=== PATIENT | male | born 1950 | race Caucasian/White ===

== ENCOUNTER → 2017-02-22 | Outpatient (CLI) | payer MEDICARE, BC ==
[~2017-02-22] MED LIST: CARD120T4 PO; CHOL5000 PO; CLOP75 PO; DOCU1CAP39 PO; HYDR-3516 PO; LIDO5T TOP; LIPI20TA PO; MONT10TA2 PO; MULT-267 PO; PLAV75TA29 PO; PRED50 PO; ROBA750T3 PO; TAB-TAB PO; TAMS5CAP PO; VITA100017 PO; VITA5000 PO; ZINC50TA2 PO
[2017-02-22 13:32] LABS: MEAN CELL VOLUME 99.2 FL (80.0-100.0); MEAN CORPUSCULAR HEMOGLOBIN 34.4 PG (27.0-34.0); MEAN CORPUSCULAR HGB CONC 34.7 % (32.0-36.0); PLATELET COUNT 246 TH/MM3 (150-450); RED BLOOD COUNT 4.43 MIL/MM3 (4.50-5.90); RED CELL DISTRIBUTION WIDTH 13.3 % (11.6-17.2); REVIEW FLAG FINAL; WHITE BLOOD COUNT 9.4 TH/MM3 (4.0-11.0)
[2017-02-22 13:37] LABS: BLOOD, URINE NEG (NEG); COMMENT (UR) CULT NOT INDICATED; CULTURE IF INDICATED CULT NOT INDICATED; GLUCOSE,URINE NEG (NEG); KETONE, URINE NEG (NEG); NITRITE,URINE NEG (NEG); URINE COLOR YELLOW (YELLW/STRAW)
[2017-02-22 13:48] LABS: BICARBONATE 28.2 MEQ/L (21.0-32.0); POTASSIUM 4.1 MEQ/L (3.5-5.1)
[2017-02-22 13:52] LABS: APTT (PATIENT) 26.9 SEC (24.3-30.1); PROTHROMBIN TIME - PATIENT 11.4 SEC (9.8-11.6)
--- NOTE | 2017-02-22 15:03 | RADRPT ---
EXAM DATE/TIME: 02/22/2017 14:26 [facility] COMPARISON: No previous studies available for comparison. INDICATIONS : Evaluate for penumonia, penumothorax, or communicable disease. Pre op for lobectomy. MEDICAL HISTORY : Myocardial infarction. Hypercholesterolemia. Chronic obstructive pulmonary disease. Sleep apnea. SURGICAL HISTORY : Appendectomy. Cholecystectomy. Splenectomy. Left hip replacement. Right knee. ENCOUNTER: Initial ACUITY: 1 day PAIN SCORE: 0/10 LOCATION: chest FINDINGS: PA and lateral views of the chest demonstrate the lungs to be symmetrically aerated without evidence of mass, infiltrate or effusion. The cardiomediastinal contours are unremarkable. Osseous structure s are intact. CONCLUSION: No acute disease. Ervin Samaniego MD FACR on February 22, 2017 at 14:54 Board Certified Radiologist. This report was verified electronically.
--- NOTE | 2017-02-22 16:49 | EKG ---
Date Performed: 02/22/2017 Time Performed: 14:14:35 PTAGE: 67 years EKG: Sinus rhythm INCOMPLETE RIGHT BUNDLE BRANCH BLOCK BORDERLINE ECG NO PREVIOUS TRACING DOCTOR: Low Cruz Interpretating Date/Time 02/22/2017 16:48:31
== END ==
LOC: CPRE 13:00
PROVIDERS: ATTEND Thoracic Surgery (Cardiothoracic Vascular Surgery)
DX: Z01.810 Encounter for preprocedural cardiovascular examination (principal); Z01.811 Encounter for preprocedural respiratory examination; Z01.812 Encounter for preprocedural laboratory examination; C34.11 Malignant neoplasm of upper lobe, right bronchus or lung; R94.31 Abnormal electrocardiogram [ECG] [EKG]
CPT/HCPCS: 36415; 71020; 80048; 81001; 85027; 85610; 85730; 93005

== ENCOUNTER 2017-02-26 05:30 | Inpatient (IN) | payer MEDICARE, BC ==
[~2017-02-26] VITALS: Ht 172.7 cm; Wt 73.0 kg
[2017-02-26] VITALS (14 sets, daily range): BP systolic 121–138; BP diastolic 66–76; PULSE 74–84; RESP 16–18; TEMP 97.1–98.2; O2SAT 94–99
[~2017-02-26 05:30] MED LIST changes: -CARD120T4 PO; -CLOP75 PO; -DOCU1CAP39 PO; -HYDR-3516 PO; -LIDO5T TOP; -PRED50 PO; -ROBA750T3 PO; -TAB-TAB PO; -VITA100017 PO; -VITA5000 PO
[2017-02-26] MEDS ORDERED: METOPROLOL TARTRATE 25 MG TAB PO PRN (06:00)
[2017-02-26] MEDS ORDERED: CHLORHEXIDINE GLUCONATE 2 % 1 PACK (2 CLOTHS) TOPICAL PRN (06:00)
[2017-02-26] MEDS ORDERED: INSULIN HUMAN REGULAR 1,000 UNITS/10 ML VIAL SQ PRN (06:00)
[2017-02-26] MEDS ORDERED: SODIUM CHLORID 0.9% 500 ML IV PRN (06:00)
[2017-02-26] MEDS ORDERED: LACTATED RINGER'S 1000 ML IV PRN (06:00)
[2017-02-26] MEDS ORDERED: POVIDONE IODINE 5% (ANTISEPSIS KIT) 4 APPLICATIONS EACH NARE PRN (06:00)
[2017-02-26] MEDS ORDERED: BUPIVACAINE LIPOSO PF 1.3% INJ 20 ML, DEXAMETHASONE INJ 4 MG, MORPHINE INJ 8 MG in SODI... IRRIGATION ONE (07:00)
[2017-02-26] MEDS ORDERED: VANCOMYCIN HCL 1000 MG VIAL ONE (07:03)
[2017-02-26] MEDS ORDERED: ACETAMINOPHEN 1000 MG/100 ML 100 ML IV ONE (08:45)
[2017-02-26] MEDS ORDERED: SUGAMMADEX SODIUM 200 MG/2 ML VIAL IV PUSH ONE ×2 (08:45)
[2017-02-26] MEDS ORDERED: ACETAMINOPHEN 325 MG TAB PO PRN (10:45)
[2017-02-26] MEDS ORDERED: Post-op Orders (for Pharmacy) MISC OTHER ONE (10:45)
[2017-02-26] MEDS ORDERED: MORPHINE SULFATE 4 MG/ML INJ IV PUSH PRN (10:45)
[2017-02-26] MEDS ORDERED: SODIUM CHLORIDE 0.9% FLUSH 5 ML FLUSH IV FLUSH PRN (10:45)
[2017-02-26] MEDS ORDERED: RESP: ALBUTEROL 2.5 MG/3 ML NEB (PRN) NEB (10:45)
[2017-02-26] MEDS ORDERED: MAGNESIUM HYDROXIDE SUSP 30 ML CUP PO PRN (10:45)
[2017-02-26] MEDS ORDERED: ONDANSETRON HCL 4 MG/2 ML VIAL IV PUSH PRN (10:45)
[2017-02-26] MEDS ORDERED: *morphine SULFATE 8 MG/ML PERIprocedure ONLY ONE ×3 (11:16→11:44)
--- NOTE | 2017-02-26 11:25 | RADRPT ---
EXAM DATE/TIME: 02/26/2017 10:57 [facility] COMPARISON: CHEST PA & LAT, February 22, 2017, 14:26. INDICATIONS : Post-op thoracotomy. MEDICAL HISTORY : Cardiovascular disease. SURGICAL HISTORY : Coronary artery stent. ENCOUNTER: Initial ACUITY: 1 day PAIN SCORE: Non-responsive. LOCATION: chest FINDINGS: There is a large bore chest tube in the right apex. Very subtle right apical pneumothorax with minima l subcutaneous emphysema. Redemonstration linear parenchymal opacities in the left lung base consiste nt with atelectasis. Cardiomedi cell contours are stable. Remainder of the exam is unchanged. CONCLUSION: 1. Right apical chest tube in good position with subtle apical pneumothorax and minimal subcutaneous emphysema. Chilo Rodriguez MD on February 26, 2017 at 11:22 Board Certified Radiologist. This report was verified electronically.
--- NOTE | 2017-02-26 11:49 | PD.OP ---
cc: Harika Simms MD; Kvng Benítez MD Operative Report Date of Surgery: Feb 26, 2017 Preoperative Diagnosis: Postoperative Diagnosis: Procedure: 1. Right Posterolateral Muscle Sparing Thoracotomy 2. Right Upper Lobectomy 3. Mediastinal Lymph Node Dissection 4. Intercostal Nerve Block Surgeon: Harika Simms Bid Writer(s): Saad Melendez Operation and Findings: PREOPERATIVE DIAGNOSIS 1. Right Upper Lobe Lung Cancer 2. COPD 3. CAD POSTOPERATIVE DIAGNOSIS same PROCEDURES 1. Right Posterolateral Muscle Sparing Thoracotomy 2. Right Upper Lobectomy 3. Mediastinal Lymph Node Dissection 4. Intercostal Nerve Block SURGEON Harika Simms MD [facility]SE[facility] Patel ANESTHESIA General double-lumen endotracheal. KEY PERSON ANDREW Dejesus MD DRAINS [address] COUNTS Needle, sponge, and instrument counts were correct. COMPLICATIONS None. INDICATION FOR PROCEDURE The patient is a 67 yo gentleman with RUL Adenocarcinoma presenting for surgical resection of above pathology. DESCRIPTION OF PROCEDURE The patient was brought to the operating suite and placed in supine position. Following satisfactory induction of general double-lumen endotracheal anesthesia , the patient was placed in the left lateral decubitus position. The right chest and surrounding area was then prepped and draped in the usual sterile fashion. A standard muscle-sparing posterolateral thoracotomy was performed and the serratus anterior muscle spared. The pleural space was entered. Exploration of the chest revealed a subcentimeter nodule in the right upper lobe. The inferior pulmonary ligament was divided. The pulmonary arterial supply to the upper lobe was identified, dissected free and divided as was the pulmonary venous supply. The bronchus was then dissected free, clamped and the remaining lung was insufflated without any difficulty. Lymph node dissections of level 4, 7, 9, 10 and 11 were performed along with the course of this removal. Some of these were retained with the specimen. Specimen was removed from the chest. At this point the closure was undertaken. A 28-Citizen Of [place] chest tube was placed. Intercostal nerve block was performed at the level of the incision and 3 rib spaces above and below using Exparel with Decadron solution. The pericostal space was approximated with interrupted #1 Vicryl sutures in a pericostal fashion. The serratus fascia and Latissimus dorsi were closed with running 0- Vicryl and the remaining wounds closed with 3-0, and 4-0 Monocryl. The patient tolerated the procedure well and postoperatively went to the PACU in stable condition. Harika Simms MD Feb 26, 2017 11:49
[2017-02-26] MEDS ORDERED: *diphenhydrAMINE HCL 50 MG/ML VIAL PERIprocedural Use ONLY ONE (11:51)
[2017-02-26] MEDS: KETOROLAC TROMETHAMINE 30 MG/ML (IVP) VIAL IV PUSH SCH ×2 (12:00→18:03)
[2017-02-26] MEDS ORDERED: PHENYLEPH/NS 1000 MCG/10 ML SYR IV ONE (12:00)
[2017-02-26] MEDS ORDERED: ONDANSETRON HCL 4 MG/2 ML VIAL IV PUSH ONE (12:00)
[2017-02-26] MEDS ORDERED: ROCURONIUM INJ 50 MG/5 ML SYRINGE IV PUSH ONE (12:00)
[2017-02-26] MEDS ORDERED: PROPOFOL 200 MG/20 ML AMP IV ONE (12:00)
[2017-02-26] MEDS: MULTIVITAMIN TAB PO SCH (12:00)
[2017-02-26] MEDS ORDERED: LIDOCAINE HCL 1% PF 5 ML AMPULE OTHER ONE (12:00)
[2017-02-26] MEDS ORDERED: MIDAZOLAM HCL 2 MG/2 ML VIAL IV ONE (12:00)
[2017-02-26] MEDS ORDERED: ESMOLOL HCL 100 MG/10 ML VIAL IV ONE (12:00)
[2017-02-26] MEDS ORDERED: DO NOT ADM ANY ANTICOAGULANT DRUGS PRN (13:30)
[2017-02-26] MEDS: RESP: ALBUTEROL 2.5 MG/3 ML NEB (SCH) NEB ×3 (15:45→21:12)
[2017-02-26] MEDS: ACETAMINOPHEN 1000 MG/100 ML 100 ML IV SCH ×2 (16:19→22:21)
[2017-02-26] MEDS: HYDROmorphone HCL PF 1 MG/ML VIAL IV PUSH PRN ×2 (16:20→20:41)
[2017-02-26] MEDS: ACETAMINOPHEN/HYDROcodone 325 MG/5 MG TAB PO PRN (19:20)
[2017-02-26] MEDS: MONTELUKAST SODIUM 10 MG TAB PO SCH (20:44)
[2017-02-26] MEDS: PANTOPRAZOLE SOD 40 MG DELAYED RELEASE TAB PO SCH (20:44)
[2017-02-26] MEDS: ATORVASTATIN 20 MG TAB PO SCH (20:45)
[2017-02-26] MEDS: TAMSULOSIN HCL 0.4 MG CAP PO SCH (20:45)
[2017-02-26] MEDS: VANCOMYCIN INJ 1,000 MG in SODIUM CHLOR 0.9% 250 ML INJ 250 ML IV SCH (20:47)
[2017-02-26] MEDS: SODIUM CHLORIDE 0.9% FLUSH 5 ML FLUSH IV FLUSH SCH (20:47)
[2017-02-26] MEDS ORDERED: DOCUSATE CALCIUM 240 MG CAP PO SCH (21:00)
[2017-02-27] VITALS (26 sets, daily range): BP systolic 110–164; BP diastolic 60–79; PULSE 51–88; RESP 16–20; TEMP 97.9–99.2; O2SAT 93–98
[2017-02-27] MEDS: KETOROLAC TROMETHAMINE 30 MG/ML (IVP) VIAL IV PUSH SCH ×2 (00:33→04:57)
[2017-02-27] MEDS: HYDROmorphone HCL PF 1 MG/ML VIAL IV PUSH PRN ×4 (00:45→20:44)
[2017-02-27] MEDS: RESP: ALBUTEROL 2.5 MG/3 ML NEB (SCH) NEB ×4 (03:31→21:04)
[2017-02-27] MEDS: ACETAMINOPHEN 1000 MG/100 ML 100 ML IV SCH ×2 (03:39→09:36)
[2017-02-27 05:24] LABS: BICARBONATE 25.2 MEQ/L (21.0-32.0); POTASSIUM 3.9 MEQ/L (3.5-5.1)
[2017-02-27 05:28] LABS: AUTOMATED NEUTROPHIL # 15.3 TH/MM3 (1.8-7.7); BASOPHIL # 0.1 TH/MM3 (0-0.2); BASOPHIL % 0.3 % (0.0-2.0); EOSINOPHIL % 0.2 % (0.0-4.0); HEMATOCRIT 39.9 % (39.0-51.0); LYMPHOCYTE # 2.3 TH/MM3 (1.0-4.8); MEAN CELL VOLUME 100.1 FL (80.0-100.0); MEAN CORPUSCULAR HEMOGLOBIN 34.4 PG (27.0-34.0); MEAN CORPUSCULAR HGB CONC 34.4 % (32.0-36.0); MONO % 14.9 % (0.0-8.0); NEUT % 73.6 % (16.0-70.0); PLATELET COUNT 200 TH/MM3 (150-450); RED BLOOD COUNT 3.99 MIL/MM3 (4.50-5.90); RED CELL DISTRIBUTION WIDTH 13.5 % (11.6-17.2); WHITE BLOOD COUNT 20.7 TH/MM3 (4.0-11.0)
[2017-02-27 05:41] LABS: HEMO FLAGS AUTO DIFF
--- NOTE | 2017-02-27 06:03 | RADRPT ---
EXAM DATE/TIME: 02/27/2017 05:23 [facility] COMPARISON: CHEST SINGLE AP, February 26, 2017, 10:57. INDICATIONS : Post thoracotomy. MEDICAL HISTORY : Cardiovascular disease. SURGICAL HISTORY : Coronary artery stent. ENCOUNTER: Subsequent ACUITY: 2 days PAIN SCORE: Non-responsive. LOCATION: Right chest FINDINGS: Right chest tube remains in place. No perceptible pneumothorax. Right chest wall emphysema again seen . Patchy consolidation seen left lung base, probably slightly worse in the interim. Heart size stable, within normal limits. Hilar fullness noted, especially on the right. CONCLUSION: 1. No pneumothorax seen. Right chest tube remains in place with tip at the apex. 2. Worsening left base consolidation. Mynor Gee MD on February 27, 2017 at 6:00 Board Certified Radiologist. This report was verified electronically.
[2017-02-27] MEDS: VANCOMYCIN INJ 1,000 MG in SODIUM CHLOR 0.9% 250 ML INJ 250 ML IV SCH (07:44)
[2017-02-27] MEDS: CHOLECALCIFEROL (VIT D3) 5000 UNIT CAP PO SCH (09:00)
[2017-02-27] MEDS ORDERED: PATIENT OWN MEDICATION: ZINC GLUCONATE 50MG TABLET PO SCH (09:00)
[2017-02-27] MEDS: SODIUM CHLORIDE 0.9% FLUSH 5 ML FLUSH IV FLUSH SCH ×2 (09:00→20:18)
[2017-02-27 09:08] LABS: SCAN/DIFF AUTO DIFF CONFIRMED
[2017-02-27] MEDS: MULTIVITAMIN TAB PO SCH (09:33)
[2017-02-27] MEDS: POLYETHYLENE GLYCOL 17 GM PKG PO SCH (09:34)
[2017-02-27] MEDS: DOCUSATE SODIUM 100 MG CAP PO SCH ×2 (09:34→20:17)
--- NOTE | 2017-02-27 11:29 | PD.CAR.PN ---
CVT Progress Note Subjective/Hospital Course: 67/ male hx of RUL nodule increasing in size, underwent BX dx with adenocarcinoma right upper lobe . PMH: COPD, CAD ( stent on Plavix 2006) tobacco abuse, quit in Sept surgery: 02/26 1. Right Posterolateral Muscle Sparing Thoracotomy 2. Right Upper Lobectomy 3. Mediastinal Lymph Node Dissection 1200cc crystalloid, 75cc EBL 02/27 had short burst of nonsustained SVT last pm, now remains in NSR K+ 3.9, 20 meq given resume plavix tomorrow continue pulm toileting path pending Objective: GENERAL: SKIN: Warm and dry. incision intact right postero lateral chest wall HEAD: Normocephalic. EYES: No scleral icterus. No injection or drainage. NECK: Supple, trachea midline. No JVD or lymphadenopathy. CARDIOVASCULAR: Regular rate and rhythm without murmurs, gallops, or rubs. RESPIRATORY: Breath sounds equal bilaterally. No accessory muscle use. chest tube to wall suction , drained 280cc/ bloody drainage, no air leak GASTROINTESTINAL: Abdomen soft, non-tender, nondistended. MUSCULOSKELETAL: No cyanosis, or edema. BACK: Nontender without obvious deformity. No CVA tenderness. Vital Signs Date Time Temp Pulse Resp B/P (MAP) Pulse Ox O2 Delivery O2 Flow Rate FiO2 02/27/17 10:06 19 02/27/17 10:04 84 02/27/17 09:36 18 02/27/17 09:00 80 02/27/17 08:55 97 21 02/27/17 08:01 69 02/27/17 07:00 98.3 79 19 123/60 (81) 95 02/27/17 07:00 81 02/27/17 06:45 51 02/27/17 05:00 77 02/27/17 04:15 74 02/27/17 03:35 98 02/27/17 03:20 77 02/27/17 03:20 97.9 77 16 110/67 (81) 98 02/27/17 02:30 79 02/27/17 01:23 81 02/27/17 00:07 78 02/26/17 23:51 98.2 78 16 126/66 (86) 94 02/26/17 23:00 78 02/26/17 22:00 80 02/26/17 21:16 94 21 10/3/17 21:00 76 02/26/17 20:15 74 02/26/17 19:05 98.0 78 18 121/76 (91) 97 02/26/17 19:05 75 02/26/17 18:12 84 02/26/17 16:00 82 02/26/17 16:00 98.0 78 16 124/68 (86) 98 02/26/17 15:50 99 Nasal Cannula 3.00 02/26/17 15:00 81 02/26/17 14:00 82 02/26/17 14:00 97.1 78 16 138/72 (94) 98 02/26/17 13:00 82 02/26/17 12:47 74 02/26/17 12:15 97.1 74 15 119/72 (88) 99 Nasal Cannula 3 02/26/17 12:00 72 16 125/75 (92) 99 Nasal Cannula 3 02/26/17 11:45 74 15 125/66 (85) 99 Nasal Cannula 3 02/26/17 11:30 74 17 126/70 (88) 99 Nasal Cannula 3 Labs: Laboratory Tests Test 02/27/17 04:43 02/27/17 04:45 Blood Urea Nitrogen 20 MG/DL (7-18) Creatinine 0.86 MG/DL (0.60-1.30) Random Glucose 125 MG/DL (74-106) Calcium Level 8.2 MG/DL (8.5-10.1) Sodium Level 135 MEQ/L (136-145) Potassium Level 3.9 MEQ/L (3.5-5.1) Chloride Level 103 MEQ/L (98-107) Carbon Dioxide Level 25.2 MEQ/L (21.0-32.0) Anion Gap 7 MEQ/L (5-15) Estimat Glomerular Filtration Rate 89 ML/MIN (>89) White Blood Count 20.7 TH/MM3 (4.0-11.0) Red Blood Count 3.99 MIL/MM3 (4.50-5.90) Hemoglobin 13.7 GM/DL (13.0-17.0) Hematocrit 39.9 % (39.0-51.0) Mean Corpuscular Volume 100.1 FL (80.0-100.0) Mean Corpuscular Hemoglobin 34.4 PG (27.0-34.0) Mean Corpuscular Hemoglobin Concent 34.4 % (32.0-36.0) Red Cell Distribution Width 13.5 % (11.6-17.2) Platelet Count 200 TH/MM3 (150-450) Mean Platelet Volume 8.2 FL (7.0-11.0) Neutrophils (%) (Auto) 73.6 % (16.0-70.0) Lymphocytes (%) (Auto) 11.0 % (9.0-44.0) Monocytes (%) (Auto) 14.9 % (0.0-8.0) Eosinophils (%) (Auto) 0.2 % (0.0-4.0) Basophils (%) (Auto) 0.3 % (0.0-2.0) Neutrophils # (Auto) 15.3 TH/MM3 (1.8-7.7) Lymphocytes # (Auto) 2.3 TH/MM3 (1.0-4.8) Monocytes # (Auto) 3.1 TH/MM3 (0-0.9) Eosinophils # (Auto) 0.0 TH/MM3 (0-0.4) Basophils # (Auto) 0.1 TH/MM3 (0-0.2) CBC Comment AUTO DIFF Differential Comment AUTO DIFF CONFIRMED Result Diagram: 02/27/17 0445 02/27/17 0443 Telemetry: NSR ( short burst SVT) (1) Adenocarcinoma of right lung (2) Right Posterolateral Muscle Sparing Thoracotomy Plan: await path OOB ambulate wean 02 (3) COPD (chronic obstructive pulmonary disease) Plan: on nebs, ezpap acapella (4) Coronary artery disease Plan: resume plavix in am may need to add BB Luisa Houston Feb 27, 2017 11:29
--- NOTE | 2017-02-27 11:32 | HHI.FF ---
Face to Face Verification Diagnosis: (1) Right Posterolateral Muscle Sparing Thoracotomy (2) Adenocarcinoma of right lung (3) COPD (chronic obstructive pulmonary disease) (4) Coronary artery disease Home Health Nursing Order: Signs/symptoms of disease process Medication education-adverse effect Wound care and dressing changes Nursing assessment with vital signs Instructions: Thoracic Surgery patients Mandatory frequency Assess and evaluation, 2-3 x a week for one week Initial visit 1. Review post chest surgery instructions chest precautions, Activity, Elastic hose, Incision care, Driving, Incentive spirometry, Smoking, Reeder , Work and other) 2. Need Betadine to paint incision 3. Medication reconciliation 4. Importance of follow up care/ check on appointments 5. Make calendar record temperature daily 6. When to call Home nurse, review instructions, phone list 7. Incentive Spirometry, demonstration Visit 1- Begin discharge instruction for patient family and/ or caregiver using teach back method- 1. Signs and symptoms of infection 2. Disease characteristics 3. Medicines and side effects 4. Foods and nutrition/ appetite 5. Infection control/ hand washing/ hygiene Visit 2- Continue teaching 1. Discharge instructions- include additional information on smoking cessation , Visit 3- Continue teaching- 1. Cough and deep breathing, incision monitoring. Incentive spirometry Q1 hr x 10, while awake, also use acapella device hourly whole awake chest wall Precautions: NO pushing or pulling, ( pt must use chest pillow to support chest with all activities and with coughing All females to wear sternal bra , launder as needed Daily incision care: ok to shower daily ( 2 days after chest tube removed ) , no tub bath. Wash all incisions with liquid dial soap, clean wash cloth to each site, rinse and pat dry. Observe for any signs of infection, such as drainage which is dark yellow, chavez, green or foul smelling. Immediately report to the surgeon any drainage from the chest incision, or legs, and for any abnormal drainage from the chest tube sites. Notify surgeon if any temp > 101.5 degrees F. When specialty dressing removed/ or if you do not have one, continue to shower daily as above, then rinse and pat incision dry and paint with betadine daily x 5 days. Allow steri strips to fall off if you have any. Avoid lotions, creams, salves, oils, etc. for the first month F/U appointment: as per DC instructions: PCP in 2 weeks, CV surgeon 2 weeks, Grades 6 Through 8 Teacher 3-4 weeks For any questions regarding incisions/ dressing / meds / post op care or above Symptoms, Saturday 8am-5pm Heart & Vascular Surgery Office ( Dr. Simms & Dr. Long), After Hours / Nights (5pm -8am) Weekends and Holidays Please call [facility] Charge Nurse I have seen patient Corbin Melendez on 02/27/17. My clinical findings support the need for the requested home health care services because: Patient has SOB Deconditioned w/ increased weakness I certify that my clinical findings support that this patient is homebound because: Post-op weakness Luisa Houston Feb 27, 2017 11:32
[2017-02-27] MEDS ORDERED: POTASSIUM CHLORIDE 20 MEQ CONTROLLED RELEASE TAB PO ONE (11:45)
[2017-02-27] MEDS: ACETAMINOPHEN/HYDROcodone 325 MG/5 MG TAB PO PRN ×4 (11:50→23:14)
[2017-02-27] MEDS: PANTOPRAZOLE SOD 40 MG DELAYED RELEASE TAB PO SCH (20:17)
[2017-02-27] MEDS: MONTELUKAST SODIUM 10 MG TAB PO SCH (20:17)
[2017-02-27] MEDS: TAMSULOSIN HCL 0.4 MG CAP PO SCH (20:17)
[2017-02-27] MEDS: ATORVASTATIN 20 MG TAB PO SCH (20:17)
[2017-02-28] VITALS (28 sets, daily range): BP systolic 135–158; BP diastolic 67–83; PULSE 71–91; RESP 16–22; TEMP 97.9–98.5; O2SAT 92–99
[2017-02-28] MEDS: HYDROmorphone HCL PF 1 MG/ML VIAL IV PUSH PRN ×6 (00:53→23:10)
[2017-02-28] MEDS: RESP: ALBUTEROL 2.5 MG/3 ML NEB (SCH) NEB ×3 (02:51→20:44)
[2017-02-28] MEDS: ACETAMINOPHEN/HYDROcodone 325 MG/5 MG TAB PO PRN ×5 (02:59→21:24)
--- NOTE | 2017-02-28 05:33 | RADRPT ---
EXAM DATE/TIME: 02/28/2017 04:35 [facility] COMPARISON: CHEST SINGLE AP, February 27, 2017, 5:23. INDICATIONS : Shortness of breath, possible pulmonary disease. MEDICAL HISTORY : Cardiovascular disease. SURGICAL HISTORY : Coronary artery stent. Thoracotomy ENCOUNTER: Subsequent ACUITY: 3 days PAIN SCORE: Non-responsive. LOCATION: Bilateral chest FINDINGS: Right chest tube remains in place. No perceptible pneumothorax. Right chest wall emphysema persists. There is patchy infiltrate of the left lung base, slightly increased in the interim. CONCLUSION: 1. No perceptible right pneumothorax. Chest tube remains in place at the apex. 2. Slightly increased left base consolidation. Mynor Gee MD on February 28, 2017 at 5:31 Board Certified Radiologist. This report was verified electronically.
[2017-02-28] MEDS: SODIUM CHLORIDE 0.9% FLUSH 5 ML FLUSH IV FLUSH SCH ×2 (09:21→21:00)
[2017-02-28] MEDS ORDERED: PILL SPLITTER OTHER PRN (11:00)
[2017-02-28] MEDS: CHOLECALCIFEROL (VIT D3) 5000 UNIT CAP PO SCH (12:16)
[2017-02-28] MEDS: METOPROLOL TARTRATE 25 MG TAB PO SCH ×2 (12:16→21:24)
[2017-02-28] MEDS: DOCUSATE SODIUM 100 MG CAP PO SCH ×2 (12:16→21:23)
[2017-02-28] MEDS: MULTIVITAMIN TAB PO SCH (12:16)
[2017-02-28] MEDS: POLYETHYLENE GLYCOL 17 GM PKG PO SCH (12:17)
--- NOTE | 2017-02-28 18:20 | PD.CAR.PN ---
CVT Progress Note Subjective/Hospital Course: 67/ male hx of RUL nodule increasing in size, underwent BX dx with adenocarcinoma right upper lobe . PMH: COPD, CAD ( stent on Plavix 2006) tobacco abuse, quit in Sept surgery: 02/26 1. Right Posterolateral Muscle Sparing Thoracotomy 2. Right Upper Lobectomy 3. Mediastinal Lymph Node Dissection 1200cc crystalloid, 75cc EBL 02/27 had short burst of nonsustained SVT last pm, now remains in NSR K+ 3.9, 20 meq given resume plavix tomorrow continue pulm toileting path pending 02/28 no further arrhythmia noted remains in NSR chest tube drained 330 sero sang drainage / will leave in today OOB ambulate path pending Objective: GENERAL: SKIN: Warm and dry. right postero lateral incision intact HEAD: Normocephalic. EYES: No scleral icterus. No injection or drainage. NECK: Supple, trachea midline. No JVD or lymphadenopathy. CARDIOVASCULAR: Regular rate and rhythm without murmurs, gallops, or rubs. RESPIRATORY: Breath sounds equal bilaterally. No accessory muscle use. chest tube in place, water seal ,no air leak GASTROINTESTINAL: Abdomen soft, non-tender, nondistended. MUSCULOSKELETAL: No cyanosis, or edema. BACK: Nontender without obvious deformity. No CVA tenderness. Vital Signs Date Time Temp Pulse Resp B/P (MAP) Pulse Ox O2 Delivery O2 Flow Rate FiO2 02/28/17 17:50 73 02/28/17 16:46 98.1 81 20 140/83 (102) 95 02/28/17 16:01 74 02/28/17 15:50 76 02/28/17 14:15 72 02/28/17 13:08 78 02/28/17 12:22 97.9 91 22 151/67 (95) 99 02/28/17 12:20 87 02/28/17 11:11 80 02/28/17 10:08 81 02/28/17 09:44 79 02/28/17 08:04 98.2 82 22 152/76 (101) 92 02/28/17 08:04 81 02/28/17 07:26 74 02/28/17 06:09 72 02/28/17 05:44 17 02/28/17 05:10 77 02/28/17 04:24 85 02/28/17 03:39 18 02/28/17 03:30 98.4 81 17 137/79 (98) 93 02/28/17 03:29 78 02/28/17 02:18 81 02/28/17 01:02 76 02/28/17 00:02 98.1 80 16 158/82 (107) 93 02/28/17 00:00 75 02/27/17 23:00 79 02/27/17 22:09 85 02/27/17 21:03 21 02/27/17 21:00 87 02/27/17 20:00 85 02/27/17 19:00 99.2 88 17 164/79 (107) 94 02/27/17 19:00 84 Result Diagram: 02/27/17 0445 02/27/17 0443 (1) Adenocarcinoma of right lung (2) Right Posterolateral Muscle Sparing Thoracotomy Plan: await path OOB ambulate wean 02 leave chest tube in today (3) COPD (chronic obstructive pulmonary disease) Plan: on nebs, ezpap acapella (4) Coronary artery disease Plan: resume plavix in am may need to add BB Luisa Houston Feb 28, 2017 18:20
[2017-02-28] MEDS: TAMSULOSIN HCL 0.4 MG CAP PO SCH (21:23)
[2017-02-28] MEDS: ATORVASTATIN 20 MG TAB PO SCH (21:23)
[2017-02-28] MEDS: MONTELUKAST SODIUM 10 MG TAB PO SCH (21:24)
[2017-02-28] MEDS: PANTOPRAZOLE SOD 40 MG DELAYED RELEASE TAB PO SCH (21:24)
[2017-02-28] MEDS: ZOLPIDEM TARTRATE 5 MG TAB PO PRN (23:04)
[2017-03-01] VITALS (30 sets, daily range): BP systolic 121–166; BP diastolic 64–79; PULSE 69–82; RESP 18–20; TEMP 97.4–99.2; O2SAT 91–94
[2017-03-01] MEDS: RESP: ALBUTEROL 2.5 MG/3 ML NEB (SCH) NEB ×4 (03:04→20:57)
[2017-03-01] MEDS: ACETAMINOPHEN/HYDROcodone 325 MG/5 MG TAB PO PRN ×3 (04:38→23:46)
[2017-03-01] MEDS: MULTIVITAMIN TAB PO SCH (08:57)
[2017-03-01] MEDS: CLOPIDOGREL 75 MG TAB PO SCH (08:57)
[2017-03-01] MEDS: METOPROLOL TARTRATE 25 MG TAB PO SCH ×2 (08:57→20:42)
[2017-03-01] MEDS: DOCUSATE SODIUM 100 MG CAP PO SCH ×2 (08:57→20:43)
[2017-03-01] MEDS: CHOLECALCIFEROL (VIT D3) 5000 UNIT CAP PO SCH (08:57)
[2017-03-01] MEDS: POLYETHYLENE GLYCOL 17 GM PKG PO SCH (09:00)
[2017-03-01] MEDS: SODIUM CHLORIDE 0.9% FLUSH 5 ML FLUSH IV FLUSH SCH ×2 (09:00→20:43)
[2017-03-01] MEDS: HYDROmorphone HCL PF 1 MG/ML VIAL IV PUSH PRN ×3 (09:37→22:15)
[2017-03-01] MEDS ORDERED: BISACODYL 10 MG SUPP RECTAL ONE (10:45)
[2017-03-01] MEDS ORDERED: SOD PHOSPHATE/SOD BIPHOSPHATE (ADULT) ENEMA 133ML PR ONE (10:45)
--- NOTE | 2017-03-01 14:57 | PD.CAR.PN ---
CVT Progress Note Subjective/Hospital Course: 67/ male hx of RUL nodule increasing in size, underwent BX dx with adenocarcinoma right upper lobe . PMH: COPD, CAD ( stent on Plavix 2006) tobacco abuse, quit in Sept surgery: 02/26 1. Right Posterolateral Muscle Sparing Thoracotomy 2. Right Upper Lobectomy 3. Mediastinal Lymph Node Dissection 1200cc crystalloid, 75cc EBL 02/27 had short burst of nonsustained SVT last pm, now remains in NSR K+ 3.9, 20 meq given resume plavix tomorrow continue pulm toileting path pending 02/28 no further arrhythmia noted remains in NSR chest tube drained 330 sero sang drainage / will leave in today OOB ambulate path pending 03/01 doing well, pain controlled , on room air chest tube removed without difficulty recheck cxr in am , if stable then dc in am No BM, additional gi meds given path pending Objective: GENERAL: SKIN: Warm and dry. incision intact and well approximated right postero lateral chest HEAD: Normocephalic. EYES: No scleral icterus. No injection or drainage. NECK: Supple, trachea midline. No JVD or lymphadenopathy. CARDIOVASCULAR: Regular rate and rhythm without murmurs, gallops, or rubs. RESPIRATORY: Breath sounds equal bilaterally. No accessory muscle use. diminished right lower lobe/ dressing placed to chest tube site GASTROINTESTINAL: Abdomen soft, non-tender, nondistended. MUSCULOSKELETAL: No cyanosis, or edema. BACK: Nontender without obvious deformity. No CVA tenderness. Vital Signs Date Time Temp Pulse Resp B/P (MAP) Pulse Ox O2 Delivery O2 Flow Rate FiO2 03/01/17 13:01 76 03/01/17 12:01 72 03/01/17 11:01 97.9 78 18 122/64 (83) 92 03/01/17 11:00 77 03/01/17 10:00 76 03/01/17 09:41 94 21 03/01/17 09:00 82 03/01/17 08:45 97.9 82 18 121/68 (85) 91 03/01/17 08:00 82 03/01/17 07:00 73 03/01/17 06:10 80 03/01/17 05:00 80 03/01/17 04:30 98.0 76 18 130/77 (94) 94 03/01/17 04:01 72 03/01/17 03:00 72 03/01/17 02:03 69 03/01/17 01:00 79 03/01/17 00:00 98.3 79 18 166/79 (108) 93 03/01/17 00:00 79 02/28/17 23:00 72 02/28/17 22:00 75 02/28/17 21:00 78 02/28/17 20:00 71 02/28/17 20:00 98.5 71 18 135/77 (96) 93 02/28/17 19:00 71 02/28/17 18:19 76 02/28/17 17:50 73 02/28/17 16:46 98.1 81 20 140/83 (102) 95 02/28/17 16:01 74 02/28/17 15:50 76 Result Diagram: 02/27/17 0445 02/27/17 0443 (1) Adenocarcinoma of right lung (2) Right Posterolateral Muscle Sparing Thoracotomy Plan: await path OOB ambulate on room air chest tube removed without difficulty eval for dc in am (3) COPD (chronic obstructive pulmonary disease) Plan: on nebs, ezpap acapella (4) Coronary artery disease Plan: plavix low dose BB Luisa Houston Mar 01, 2017 14:57
[2017-03-01] MEDS ORDERED: HYDR-3516 PO (15:03)
[2017-03-01] MEDS ORDERED: DOCU1CAP39 PO (15:03)
--- NOTE | 2017-03-01 15:17 | HHI.DS ---
Discharge Summary Admission Date Feb 26, 2017 at 05:30 Discharge Date: Mar 02, 2017 Admitting Diagnosis Right Upper Lobe Lung Cancer (1) Adenocarcinoma of right lung Diagnosis: Principal ICD Codes: C34.91 - Malignant neoplasm of unspecified part of right bronchus or lung Status: Acute (2) Right Posterolateral Muscle Sparing Thoracotomy Diagnosis: Secondary (3) COPD (chronic obstructive pulmonary disease) ICD Codes: J44.9 - Chronic obstructive pulmonary disease, unspecified (4) Coronary artery disease ICD Codes: I25.10 - Atherosclerotic heart disease of [place] coronary artery without angina pectoris Procedures 1. Right Posterolateral Muscle Sparing Thoracotomy 02/26 2. Right Upper Lobectomy 3. Mediastinal Lymph Node Dissection Brief History 67/ male hx of RUL nodule increasing in size, underwent BX dx with adenocarcinoma right upper lobe . PMH: COPD, CAD ( stent on Plavix 2006) tobacco abuse, quit in Sept surgery: 02/26 1. Right Posterolateral Muscle Sparing Thoracotomy 2. Right Upper Lobectomy 3. Mediastinal Lymph Node Dissection CBC/BMP: 02/27/17 0445 02/27/17 0443 Significant Findings Laboratory Tests Test 02/27/17 04:43 02/27/17 04:45 Blood Urea Nitrogen 20 MG/DL (7-18) Random Glucose 125 MG/DL (74-106) Calcium Level 8.2 MG/DL (8.5-10.1) Sodium Level 135 MEQ/L (136-145) White Blood Count 20.7 TH/MM3 (4.0-11.0) Red Blood Count 3.99 MIL/MM3 (4.50-5.90) Mean Corpuscular Volume 100.1 FL (80.0-100.0) Mean Corpuscular Hemoglobin 34.4 PG (27.0-34.0) Neutrophils (%) (Auto) 73.6 % (16.0-70.0) Monocytes (%) (Auto) 14.9 % (0.0-8.0) Neutrophils # (Auto) 15.3 TH/MM3 (1.8-7.7) Monocytes # (Auto) 3.1 TH/MM3 (0-0.9) Imaging Last Impressions Chest X-Ray 02/28/17 0600 Signed Impressions: Service Date/Time: February 04:35 - CONCLUSION: 1. No perceptible right pneumothorax. Chest tube remains in place at the apex. 2. Slightly increased left base consolidation. Mynor Gee MD PE at Discharge GENERAL: SKIN: Warm and dry. incision right posterior lateral chest wall HEAD: Normocephalic. EYES: No scleral icterus. No injection or drainage. NECK: Supple, trachea midline. No JVD or lymphadenopathy. CARDIOVASCULAR: Regular rate and rhythm without murmurs, gallops, or rubs. RESPIRATORY: Breath sounds equal bilaterally. No accessory muscle use. GASTROINTESTINAL: Abdomen soft, non-tender, nondistended. MUSCULOSKELETAL: No cyanosis, or edema. BACK: Nontender without obvious deformity. No CVA tenderness. Hospital Course 02/27 had short burst of nonsustained SVT last pm, now remains in NSR K+ 3.9, 20 meq given resume plavix tomorrow continue pulm toileting path pending 02/28 no further arrhythmia noted remains in NSR chest tube drained 330 sero sang drainage / will leave in today OOB ambulate path pending 03/01 doing well, pain controlled , on room air chest tube removed without difficulty recheck cxr in am , if stable then dc in am No BM, additional gi meds given path pending Pt Condition on Discharge: Good Discharge Disposition: Disch w/ Home Health Serv Discharge Instructions DIET: Follow Instructions for: As Tolerated, No Restrictions Activities you can perform: Shower Only-No Bath Activities to avoid: Strenuous Activity, Driving Additional Activity Instructio: no lifting > 8 lbs or gallon of milk Follow up Referrals: Appointment for Follow Up Appointment for Follow Up PCP Follow-up New Medications: Docusate Sodium (Dok) 100 Mg Cap 100 MG PO BID for Constipation, #60 CAP 0 Refills Hydrocodone-Acetaminophen (Hydrocodone-Acetaminophen) 5-325 mg Tab 1 TAB PO Q6HR PRN for PAIN SCALE 3 TO 5, #40 TAB 0 Refills Continued Medications: Atorvastatin (Lipitor) 20 Mg Tab 20 MG PO HS for Cholesterol Management, #30 TAB 0 Refills Cholecalciferol (Vitamin D3) 5,000 Unit Cap 5000 UNITS PO DAILY for Nutritional Supplement, #30 CAP 0 Refills Clopidogrel (Plavix) 75 Mg Tab 75 MG PO DAILY for Blood Clot Prevention, #30 TAB 0 Refills Montelukast (Singulair) 10 Mg Tab 10 MG PO HS, #30 TAB 0 Refills Multivitamin (Men's Multi-Vitamin) 1 Each Tablet 1 TAB PO DAILY Tamsulosin (Flomax) 0.4 Mg Cap 0.4 MG PO HS for Manage Prostate Problems, #30 CAP 0 Refills Zinc Gluconate (Zinc Gluconate) 50 Mg Tab 50 MG PO DAILY, TAB Luisa Houston Mar 01, 2017 15:17
[2017-03-01] MEDS: ATORVASTATIN 20 MG TAB PO SCH (20:42)
[2017-03-01] MEDS: TAMSULOSIN HCL 0.4 MG CAP PO SCH (20:43)
[2017-03-01] MEDS: MONTELUKAST SODIUM 10 MG TAB PO SCH (20:43)
[2017-03-01] MEDS: PANTOPRAZOLE SOD 40 MG DELAYED RELEASE TAB PO SCH (20:43)
[2017-03-01] MEDS: ZOLPIDEM TARTRATE 5 MG TAB PO PRN (23:46)
[2017-03-02] VITALS (20 sets, daily range): BP systolic 106–133; BP diastolic 57–74; PULSE 60–84; RESP 18–20; TEMP 97.6–98.2; O2SAT 93–96
[2017-03-02] MEDS: RESP: ALBUTEROL 2.5 MG/3 ML NEB (SCH) NEB ×2 (03:50→09:11)
[2017-03-02] MEDS: ACETAMINOPHEN/HYDROcodone 325 MG/5 MG TAB PO PRN ×2 (03:55→11:01)
--- NOTE | 2017-03-02 05:20 | RADRPT ---
EXAM DATE/TIME: 03/02/2017 04:41 [facility] COMPARISON: CHEST SINGLE AP, February 28, 2017, 4:35. INDICATIONS : Shortness of breath, possible pulmonary disease. MEDICAL HISTORY : Cardiovascular disease. SURGICAL HISTORY : Coronary artery stent. Thoracotomy ENCOUNTER: Subsequent ACUITY: 4 - 6 days PAIN SCORE: 3/10 LOCATION: Bilateral chest FINDINGS: A single portable frontal view the chest shows interval removal of the right thoracostomy tube with s mall apical pneumothorax. Chronic interstitial changes within the bases are stable. No infiltrate or effusion. Heart is normal in size. CONCLUSION: Right thoracostomy tube removal with small apical pneumothorax. Chronic interstitial changes. Abran Boswell Jr., MD on March 02, 2017 at 5:18 Board Certified Radiologist. This report was verified electronically.
[2017-03-02] MEDS: MULTIVITAMIN TAB PO SCH (08:21)
[2017-03-02] MEDS: CLOPIDOGREL 75 MG TAB PO SCH (08:21)
[2017-03-02] MEDS: DOCUSATE SODIUM 100 MG CAP PO SCH (08:21)
[2017-03-02] MEDS: CHOLECALCIFEROL (VIT D3) 5000 UNIT CAP PO SCH (08:21)
[2017-03-02] MEDS: METOPROLOL TARTRATE 25 MG TAB PO SCH (08:21)
[2017-03-02] MEDS: SODIUM CHLORIDE 0.9% FLUSH 5 ML FLUSH IV FLUSH SCH (08:22)
[2017-03-02] MEDS: POLYETHYLENE GLYCOL 17 GM PKG PO SCH (09:00)
--- NOTE | 2017-03-02 09:20 | PD.CAR.PN ---
CVT Progress Note Subjective/Hospital Course: 67/ male hx of RUL nodule increasing in size, underwent BX dx with adenocarcinoma right upper lobe . PMH: COPD, CAD ( stent on Plavix 2006) tobacco abuse, quit in Sept surgery: 02/26 1. Right Posterolateral Muscle Sparing Thoracotomy 2. Right Upper Lobectomy 3. Mediastinal Lymph Node Dissection 1200cc crystalloid, 75cc EBL 02/27 had short burst of nonsustained SVT last pm, now remains in NSR K+ 3.9, 20 meq given resume plavix tomorrow continue pulm toileting path pending 02/28 no further arrhythmia noted remains in NSR chest tube drained 330 sero sang drainage / will leave in today OOB ambulate path pending 03/01 doing well, pain controlled , on room air chest tube removed without difficulty recheck cxr in am , if stable then dc in am No BM, additional gi meds given path pending 03/02 Doing well Discharge home today Pathology discussed with Pt - [id number] NSCLC Objective: Vital Signs Date Time Temp Pulse Resp B/P (MAP) Pulse Ox O2 Delivery O2 Flow Rate FiO2 03/02/17 07:01 69 03/02/17 06:00 82 03/02/17 05:03 76 03/02/17 04:00 68 03/02/17 04:00 98.1 60 20 133/74 (93) 95 03/02/17 03:50 95 03/02/17 03:00 76 03/02/17 02:00 76 03/02/17 01:00 79 03/02/17 00:00 97.6 84 20 132/72 (92) 93 03/02/17 00:00 66 03/01/17 23:00 78 03/01/17 22:00 79 03/01/17 21:00 74 03/01/17 20:00 80 03/01/17 20:00 99.2 79 20 122/67 (85) 93 03/01/17 19:00 79 03/01/17 18:00 78 03/01/17 17:00 78 03/01/17 16:00 76 03/01/17 15:50 92 21 03/01/17 15:15 97.4 77 18 136/64 (88) 93 03/01/17 15:00 79 03/01/17 14:00 76 03/01/17 13:01 76 03/01/17 12:01 72 03/01/17 11:01 97.9 78 18 122/64 (83) 92 03/01/17 11:00 77 03/01/17 10:00 76 03/01/17 09:41 94 21 Result Diagram: 02/27/17 0445 02/27/17 0443 (1) Adenocarcinoma of right lung (2) Right Posterolateral Muscle Sparing Thoracotomy Plan: await path OOB ambulate on room air chest tube removed without difficulty eval for dc in am (3) COPD (chronic obstructive pulmonary disease) Plan: on nebs, ezpap acapella (4) Coronary artery disease Plan: plavix low dose BB Harika Simms MD Mar 02, 2017 09:20
[2017-03-02] MEDS: HYDROmorphone HCL PF 1 MG/ML VIAL IV PUSH PRN (15:08)
== END 2017-03-02 17:34 | disposition home or self-care (01) | DRG 164 ==
LOC: HSDI 05:30 → HCPC 12:33
PROVIDERS: ADMIT Thoracic Surgery (Cardiothoracic Vascular Surgery); ATTEND Thoracic Surgery (Cardiothoracic Vascular Surgery)
PROC: 07B70ZX Excision of Thorax Lymphatic, Open Approach, Diagnostic (ICD-10-PCS; 2017-02-26)
PROC: 3E0T3BZ Introduction of Anesthetic Agent into Peripheral Nerves and Plexi, Percutaneous Approach (ICD-10-PCS; 2017-02-26)
PROC: 0BTC0ZZ Resection of Right Upper Lung Lobe, Open Approach (ICD-10-PCS; principal; 2017-02-26 07:22)
DX: C34.11 Malignant neoplasm of upper lobe, right bronchus or lung (principal); I47.1 Supraventricular tachycardia; J44.9 Chronic obstructive pulmonary disease, unspecified; I25.10 Atherosclerotic heart disease of native coronary artery without angina pectoris; Z95.5 Presence of coronary angioplasty implant and graft; Z79.02 Long term (current) use of antithrombotics/antiplatelets; I25.2 Old myocardial infarction; E78.5 Hyperlipidemia, unspecified; Z96.651 Presence of right artificial knee joint; Z87.891 Personal history of nicotine dependence
CPT/HCPCS: 71010; 80048; 85025; 86850; 86900; 86901; 86920; 88305; 88307; 88309; 88341; 88342; 94150; 94640; 94664; 94667; 94668; C9290; J0131; J1100; J1170; J1200; J1885; J2250; J2270; J2370; J2405; J3010; J3370; J7050; J7120; J7613